=== PATIENT | male | born 1990 | race Caucasian/White ===

== ENCOUNTER 2017-11-02 10:47 | Emergency (ER) | payer OTHER ==
[2017-11-02 10:55] VITALS: BP 132/77; PULSE 72; TEMP 98; BMI 28.0
--- NOTE | 2017-11-02 11:39 | PDOC ---
Attending Attestation - Resident Resident Name: GalenKevlinIsmael - ED Attending Attestation I have performed the following: I have examined & evaluated the patient, The case was reviewed & discussed with the resident, I agree w/resident's findings & plan, Exceptions are as noted - HPI HPI: 11/02/17 11:39 Agree with Residents HPI - Physicial Exam PE: 11/02/17 11:39 Agree with Residents PE - Medical Decision Making 11/02/17 17:34 Laceration to the MCP joint on the dorsal surface index finger good extension at the DIP and PIP joint neurovascularly intact distally irrigated and sutured by resident patient provided with hand follow-up. Findings, need for follow-up and strict return instructions discussed with patient.
[2017-11-02] MEDS ORDERED: IBUPROFEN 600 MG TABLET (FP) PO ONE (12:16)
[2017-11-02] MEDS ORDERED: DIPHTH,PERTUSS(ACELL),TET 0.5 ML DISP.SYRIN IM ONE (12:16)
--- NOTE | 2017-11-02 12:48 | PDOC ---
History of Present Illness - General Chief Complaint: Laceration Stated Complaint: I CUT MY FINGER Time Seen by Provider: 11/02/17 10:59 - History of Present Illness Initial Comments: 11/02/17 12:46 27 yo M with no significant pmh who p/w left 2nd digit laceration. Patient states that he was cleaning a knife (1000 AM) at current employer and cut his index finger at the knuckle. Reports minimal blood loss, with absent nail bed involvement, or foreign body. 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 Took 1 OTC Ibuprofen. Does not recall last Tetanus. Patient denies N/V, F/C, CP, SOB, urinary complaints, abdominal pain, diarrhea, constipation, lightheadedness, weakness, sensory changes. PMHx: as noted above ROS: as noted SHx: Denies Etoh, tobacco, IVDA Allergies: NKDA Past History - Past Medical History Allergies/Adverse Reactions: Allergies Allergy/AdvReac Type Severity Reaction Status Date / Time No Known Allergies Allergy Verified 11/02/17 10:47 Home Medications: Ambulatory Orders Ibuprofen 600 mg PO QID PRN #28 tablet MDD 4 tab 11/02/17 COPD: No DVT: No Other medical history: DENIES - Suicide/Smoking/Psychosocial Hx Smoking History: Never smoked Hx Alcohol Use: No Drug/Substance Use Hx: No Substance Use Type: None Review of Systems - Review of Systems Comments:: 11/02/17 12:46 GENERAL/CONSTITUTIONAL: No fever or chills. No weakness. HEAD, EYES, EARS, NOSE AND THROAT: No change in vision. No ear pain or discharge. No sore throat. CARDIOVASCULAR: No chest pain or shortness of breath RESPIRATORY: No cough, wheezing, or hemoptysis. GASTROINTESTINAL: No nausea, vomiting, diarrhea or constipation. GENITOURINARY: No dysuria, frequency, or change in urination. MUSCULOSKELETAL: + Left hand/index finger injury. No joint or muscle swelling. No neck or back pain. SKIN: No rash NEUROLOGIC: No headache, vertigo, loss of consciousness, or change in strength/ sensation. ENDOCRINE: No increased thirst. No abnormal weight change HEMATOLOGIC/LYMPHATIC: No anemia, easy bleeding, or history of blood clots. ALLERGIC/IMMUNOLOGIC: No hives or skin allergy. *Physical Exam - Vital Signs Last Vital Signs Temp Pulse Resp BP Pulse Ox 98 F 72 19 132/77 100 11/02/17 10:47 11/02/17 10:47 11/02/17 10:47 11/02/17 10:47 11/02/17 10:47 - Physical Exam Comments: 11/02/17 12:47 GENERAL: Awake, alert, and fully oriented, in no acute distress HEAD: No signs of trauma, normocephalic, atraumatic EYES: PERRLA, EOMI, sclera anicteric, conjunctiva clear ENT: Auricles normal inspection, hearing grossly normal, nares patent, oropharynx clear without exudates. Moist mucosa NECK: Normal ROM, supple, no lymphadenopathy, JVD, or masses LUNGS: No distress, speaks full sentences, clear to auscultation bilaterally HEART: Regular rate and rhythm, normal S1 and S2, no murmurs, rubs or gallops, peripheral pulses normal and equal bilaterally. ABDOMEN: Soft, nontender, normoactive bowel sounds. No guarding, no rebound. No masses EXTREMITIES : Normal inspection, Normal range of motion, no edema. No clubbing or cyanosis. Left Hand: + 3-4 mm laceration at 2nd digit anterior MCP. Nail bed intact. Absent foreign body. Neg bony visualization. Radial pulse intact. Neg bony deformity. Normal ROM. Normal extensor and flexor function at joint. Absent tendon visualization on irrigation. NEUROLOGICAL: Cranial nerves II through XII grossly intact. Normal speech, normal gait, no focal sensorimotor deficits SKIN: Warm, Dry, normal turgor, no rashes or lesions noted Procedures - Laceration/Wound Repair Left Anterior 2nd digit Wound Length: to 2.5 cm Wound's Depth, Shape: superficial, linear Irrigated w/ Saline: Yes Betadine Prep: No Anesthesia: 1% Lidocaine Wound Debrided: minimal Wound Repaired With: Sutures Suture Size/Type: 5:0 Number of Sutures: 4 Layer Closure: No Sterile Dressing Applied: Yes Splint Applied: No Sling Applied: No ED Treatment Course - RADIOLOGY Radiology Studies Ordered: Category Date Time Status HAND- LEFT [RAD] Stat Radiology 11/02/17 12:17 Ordered - Medications Given in the ED: ED Medications Discontinued Medications Generic Name Dose Route Start Last Admin Trade Name Freq PRN Reason Stop Dose Admin Diphtheria/Tetanus/Acell Pertussis 0.5 ml 11/02/17 12:16 11/02/17 12:36 Boostrix - IM 11/02/17 12:17 0.5 ml .ONCE ONE Administration Ibuprofen 600 mg 11/02/17 12:16 11/02/17 12:41 Motrin - PO 11/02/17 12:17 Not Given ONCE ONE Medical Decision Making - Medical Decision Making 11/02/17 13:01 27 yo M with no significant pmh who p/w left 2nd digit laceration following injury with knife. VSS, AF, A&Ox3. + 3-4 mm laceration at 2nd digit anterior MCP. Nail bed intact. Absent foreign body. Neg bony visualization. Radial pulse intact. Neg bony deformity. Neg snuff box ttp. Low suspicion scaphoid fracture. Normal ROM. R/o fracture or dislocation. Low suspicion tendon involvement. Plan to suture repair. Ed Course: Boostrix Left hand RAD 11/02/17 13:22 Although patient with normal flexor and extensor tendon strength at 2nd MCP/ digit, pt. was advised to f/u with hand surgery within 48 hours, d/t risk of potential injury. 11/02/17 14:05 Finger irrigated with NS, with 4x 5-0 sutures placed at laceration site. 3 ml lidocaine without epi used. Bacitracin and dressing applied. 11/02/17 14:22 Pt. Stable for d/c with return precautions. *DC/Admit/Observation/Transfer Diagnosis at time of Disposition: Laceration of index finger Qualifiers: Encounter type: initial encounter Damage to nail status: without damage Foreign body presence: without foreign body Laterality: left Qualified Code(s): S61.211A - Laceration without foreign body of left index finger without damage to nail, initial encounter - Discharge Dispostion Condition at time of disposition: Stable Decision to Admit order: No - Prescriptions Prescriptions: Ibuprofen 600 mg PO QID PRN #28 tablet MDD 4 tab PRN Reason: Pain Level 4 - 6 - Referrals Referrals: Nito Belle MD [Staff Physician] - Lucas Montanez MD [Staff Physician] - - Patient Instructions Printed Discharge Instructions: DI for Laceration Repair Additional Instructions: Please return to the emergency department with any new or worsening symptoms or concerns. Please follow up with hand surgery within 48 hours to rule out injury. Please follow up with your primary care physician within 72 hours. Please come back to the emergency department in 7 days for suture removal. Avoid water to suture site for 24 hours. - Post Discharge Activity Forms/Work/School Notes: Back to Work - Attestations Physician Attestion: 11/02/17 12:47 I attest to the information provided in this note.
== END 2017-11-02 14:21 | disposition home or self-care (01) ==
LOC: FER 10:47
PROC: 0HQGXZZ Repair Left Hand Skin, External Approach (ICD-10-PCS; principal; 2017-11-02)
DX: S61.211A Laceration without foreign body of left index finger without damage to nail, initial encounter (principal); W26.0XXA Contact with knife, initial encounter; Y93.89 Activity, other specified; Y92.511 Restaurant or cafe as the place of occurrence of the external cause; Y99.0 Civilian activity done for income or pay
CPT/HCPCS: 73130-TC-LR-FY; 90715; 99282-25

== ENCOUNTER 2017-11-12 14:39 | Emergency (ER) | payer OTHER ==
--- NOTE | 2017-11-12 14:46 | PDOC ---
History of Present Illness - General Stated Complaint: SUTURE REMOVAL Time Seen by Provider: 11/12/17 14:45 - History of Present Illness Initial Comments: 27 yo M presenting for suture removal and left foot lesion. Patient initially presented on 11/02/17 (ten days ago) for laceration on the dorsal aspect of the left second digit over the knuckle. He received four sutures. Reports some tenderness to the area of injury with pain controlled by ibuprofen. Denies red streaking, discharge, or fluctuance. Patient also reports a wound on his left foot that started as a bug bite about one week ago. Since that time the wound had expanded with surrounding redness and induration. The patient lanced the area at home and expressed blood, but not pus. Reports similar lesions in his youth, but not in the past five years. Patient is able to ambulate without difficulty. Denies fever, chills, chest pain, shortness of breath, or abdominal pain. 11/12/17 15:33 Past History - Past Medical History Allergies/Adverse Reactions: Allergies Allergy/AdvReac Type Severity Reaction Status Date / Time No Known Allergies Allergy Verified 11/12/17 14:47 Home Medications: Ambulatory Orders Ibuprofen 600 mg PO QID PRN #28 tablet MDD 4 tab 11/02/17 Cephalexin [Keflex] 500 mg PO QID #20 capsule 11/12/17 Ibuprofen 600 mg PO QID PRN #28 tablet 11/12/17 COPD: No DVT: No - Suicide/Smoking/Psychosocial Hx Smoking History: Never smoked Hx Alcohol Use: No Drug/Substance Use Hx: No Substance Use Type: None Review of Systems - Review of Systems Comments:: Constitutional: no fever, no chills Cardiovascular: no chest pain Respiratory: no shortness of breath Gastrointestinal: no abdominal pain Skin: +L. foot lesion, no itching Neurologic: no headache, no dizziness *Physical Exam - Physical Exam Comments: General: Awake, alert, and fully oriented, in no acute distress Head: no signs of trauma Eyes: EOMI, sclera anicteric ENT: Moist mucus membranes Neck: Normal ROM, supple Lungs: Lungs clear, Normal breath sounds Cardio: Regular rhythm, S1 and S2 present Abdomen: Soft, nontender Extremities: Normal range of motion, Distal pulses present; well-healing 1cm laceration overlying left second knuckle with well-approximated edges and some separation, +erythema; 1x1cm area of cellulitis on dorsum of left foot overlying first metacarpal, no fluctuance or discharge Neurologic: Cranial nerves II through XII grossly intact. Normal speech Medical Decision Making - Medical Decision Making 27 yo M presenting for suture removal and left foot lesion. -Removed four sutures on left hand. Wound is well-healing but due to some separation, applied two steri-strips and dressed the area with gauze. 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 -Left food has small area of cellulitis with no abscess. Sent keflex to pharmacy. -Sent ibuprofen to pharmacy for pain. -Patient discharged with return precautions. 11/12/17 16:06 *DC/Admit/Observation/Transfer Diagnosis at time of Disposition: Visit for suture removal Cellulitis Qualifiers: Site of cellulitis: extremity Site of cellulitis of extremity: lower extremity Laterality: left Qualified Code(s): L03.116 - Cellulitis of left lower limb - Discharge Dispostion Disposition: HOME Condition at time of disposition: Good - Prescriptions Prescriptions: Cephalexin [Keflex] 500 mg PO QID #20 capsule Ibuprofen 600 mg PO QID PRN #28 tablet PRN Reason: Pain - Referrals - Patient Instructions Printed Discharge Instructions: DI for Suture Removal Additional Instructions: You came to the ED for suture removal. Steri-strips were applied to help keep the wound edges together. Keep the area clean. Prescriptions sent to your pharmacy. RETURN to the ED if you experience: redness or hardness around the wound, pain or tenderness, a red streak, yellow or green discharge oozing from the wound, fever or chills. - Post Discharge Activity
--- NOTE | 2017-11-12 14:51 | PDOC ---
Attending Attestation - Resident Resident Name: Abena Ledezma - ED Attending Attestation I have performed the following: I have examined & evaluated the patient, The case was reviewed & discussed with the resident, I agree w/resident's findings & plan, Exceptions are as noted - HPI HPI: 11/12/17 14:51 27 yo M s/p laceration to the right hand, 10 days s/p suture repair No fevers or chills no drainage No swelling Here for suture repair 11/12/17 14:51 - Physicial Exam PE: 11/12/17 14:53 Right nuckle laceration Sutures removed Steri strips applied
[2017-11-12 14:52] VITALS: BP 129/78; PULSE 75; TEMP 98.8; BMI 28.8
== END 2017-11-12 15:35 | disposition home or self-care (01) ==
LOC: FER 14:39
DX: Z48.02 Encounter for removal of sutures (principal); L03.116 Cellulitis of left lower limb
CPT/HCPCS: 99281-25